=== PATIENT | female | born 1985 | race Caucasian/White ===

== ENCOUNTER 2016-07-16 23:45 | Emergency (ER) | payer OTHER ==
[~2016-07-16 23:45] MED LIST: DICLEGIS DR 101 EACH PO; EXCEDRIN EXTRA1 TAB PO; NO MEDICATIONS; OMNICEF300 MG PO; PEPCID AC20 MG PO; PREDNISONE PO; VOLTAREN75 MG PO
== END 2016-07-17 01:13 | disposition home or self-care (01) ==
LOC: SED 23:45
DX: K08.89 Other specified disorders of teeth and supporting structures (principal); F41.9 Anxiety disorder, unspecified; F32.9 Major depressive disorder, single episode, unspecified; F17.200 Nicotine dependence, unspecified, uncomplicated; Z86.19 Personal history of other infectious and parasitic diseases; Z88.8 Allergy status to other drugs, medicaments and biological substances
CPT/HCPCS: 99282